=== PATIENT | male | born 1980 | race Caucasian/White ===

== ENCOUNTER 2025-07-02 15:56 | Emergency (ER) | payer OTHER ==
[2025-07-02] MEDS: Bacitracin Oint 1 GM U/D Packet TOP ONE (17:18)
== END 2025-07-02 18:24 | disposition home or self-care (01) ==
LOC: JP.ED 15:56 → MERGE 15:56 → JP.ED 18:24
DX: S61.213A Laceration without foreign body of left middle finger without damage to nail, initial encounter (principal); I10 Essential (primary) hypertension; W31.2XXD Contact with powered woodworking and forming machines, subsequent encounter
CPT/HCPCS: 12002; 73140; 99283; J2003